=== PATIENT | male | born 1955 | race Caucasian/White ===

== ENCOUNTER 2022-07-28 18:58 | Emergency (ER) | payer OTHER, MEDICARE ==
[~2022-07-28 18:58] MED LIST: Iopamidol 370 76% 100 ML VIAL ONE
[2022-07-28] MEDS ORDERED: Ondansetron PF 4 MG/2 ML Vial ONE ×2 (19:11→20:35)
[2022-07-28 19:37] LABS: ALT (SGPT) 28 U/L (8-55); AST (SGOT) 18 U/L (5-34); Albumin 3.2 g/dL (3.4-4.8); Alkaline Phosphatase 51 U/L (40-110); Anion Gap 17 mmol/L (10-20); BUN (Urea Nitrogen) 36 mg/dL (8.4-25.7); Bilirubin, Total 0.4 mg/dL (0.2-1.2); CK (CPK) 33 U/L (30-200); Calc. Creatinine Clearance 0 mL/min (70-130); Calcium 8.7 mg/dL (7.8-10.44); Carbon Dioxide 19 mmol/L (23-31); Chloride 109 mmol/L (98-107); Estimated GFR 89; Globulin 2.8 g/dL (2.4-3.5); Glucose 192 mg/dL (80-115); Potassium 4.9 mmol/L (3.5-5.1); Sodium 140 mmol/L (136-145)
[2022-07-28] MEDS ORDERED: Pantoprazole 40 MG VIAL ONE ×2 (19:37→20:11)
[2022-07-28] MEDS ORDERED: Sodium Chloride 0.9% 500 ML ONE (19:37)
[2022-07-28] MEDS ORDERED: Sodium Chloride 0.9% 1,000 ML ONE (19:37)
[2022-07-28 19:39] LABS: #Basophils 0.1 thou/uL (0.0-0.2); #Monocytes 0.5 thou/uL (0.11-0.59); #Neutrophils 6.8 thou/uL (1.40-6.50); %Basophils 0.5 % (0.0-1.0); %Eosinophils 0.2 % (0.0-10.0); %Lymphocytes 21.6 % (21.0-51.0); %Monocytes 5.2 % (0.0-10.0); %Neutrophils 72.4 % (42.0-75.0); Hemoglobin 9.3 g/dL (14.0-18.0); MDiff Complete? YES; Mean Corpuscular HGB CONC 29.8 g/dL (32.0-36.0); Mean Corpuscular Volume 83.8 fL (78.0-98.0); Mean Platelet Volume 8.8 fL (7.4-10.4); Platelet Count 300 thou/uL (130-400); Platelet Morphology Comment Appears Adequate; RBC Distribution Width 14.6 % (11.5-14.5); Red Blood Cell (RBC) Count 3.75 mill/uL (4.70-6.10); Stomatocytes SLIGHT = 2-5 cells (100X) (0-1/hpf); White Blood Cell (WBC) Count 9.3 thou/uL (4.8-10.8)
[2022-07-28 19:41] LABS: Bilirubin Negative (Negative); Blood, Urine Negative (Negative); Clarity Clear (Clear); Glucose, Urine (Dipstick) Negative (Negative); Ketone, Urine Trace mg/dL (Negative); Leukocyte Negative (Negative); Nitrite Negative (Negative); Protein, Urine (Dipstick) Negative (Neg-Trace)
[2022-07-28 20:11] LABS: SARS-CoV-2 NAA Rapid Test Not Detected (NotDetected)
[2022-07-28] MEDS ORDERED: Sodium Chloride 0.9% 100 ML ONE ×2 (20:11)
[2022-07-28] MEDS ORDERED: Tranexamic Acid 1,000 MG/10 ML VIAL ONE (20:11)
== END 2022-07-28 20:48 | disposition short-term general hospital (02) ==
LOC: MADERS 18:58
DX: K92.2 Gastrointestinal hemorrhage, unspecified (principal); E11.9 Type 2 diabetes mellitus without complications; Z20.822 Contact with and (suspected) exposure to COVID-19; Z79.4 Long term (current) use of insulin; Z79.899 Other long term (current) drug therapy
CPT/HCPCS: 36430; 71260; 74177; 80053; 81003; 82274; 82550; 83605; 84484; 85025; 86850; 86900; 86901; 87040; 87086; 93005; 96360; 96374; 96375; 96376; C9113; J2405; J7030; J7050; P9016; Q9967; U0002